=== PATIENT | male | born 1990 | race Caucasian/White ===

== ENCOUNTER 2020-02-18 17:00 | Emergency (ER) | payer OTHER ==
[~2020-02-18] VITALS: Ht 170.2 cm; Wt 83.0 kg
[2020-02-18 17:22] VITALS: BP 129/71
--- NOTE | 2020-02-18 17:45 | NUR ---
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
--- NOTE | 2020-02-18 18:49 | NUR ---
Patient discharged to home in stable condition. Written and verbal after care instructions given. Patient verbalizes understanding of instruction.
== END 2020-02-18 18:52 | disposition home or self-care (01) ==
LOC: ER 17:11
DX: K08.89 Other specified disorders of teeth and supporting structures (principal); M79.672 Pain in left foot
CPT/HCPCS: 73630-TC